=== PATIENT | male | born 1960 | race Caucasian/White ===

== ENCOUNTER 2018-01-06 10:55 | Observation (INO) | payer MEDICAID ==
[2018-01-06] MEDS ORDERED: Loperamide 2 MG Cap PO ONE (11:42)
[2018-01-06] MEDS ORDERED: Ondansetron 4 MG/2 ML SDV IVPUSH PRN (11:43)
[2018-01-06] MEDS ORDERED: Loperamide 2 MG Cap ONE (11:48)
[2018-01-06] MEDS ORDERED: Ondansetron 4 MG/2 ML SDV ONE (11:49)
[2018-01-06] MEDS: Sodium Chloride 0.9% 1,000 ML IV SCH ×2 (12:00→12:56)
[2018-01-06] MEDS ORDERED: Pantoprazole 40 MG Vial IVPUSH SCH (13:00)
[2018-01-06 16:55] VITALS: BP 150/77
--- NOTE | 2018-01-08 11:28 | PCM.DCSUM1 ---
Discharge Summary - Hospital Course Brief History: Patient was placed in observation for dehydration secondary to viral gastroenteritis, vomitng and diarrhea. - Discharge Data Discharge Date: 01/06/18 Discharge Disposition: Home, Self-Care 01 Condition: Good - Discharge Diagnosis/Problem(s) (1) Viral gastroenteritis SNOMED Code(s): 622426422 ICD Code: A08.4 - VIRAL INTESTINAL INFECTION, UNSPECIFIED Status: Suspected Priority: High (2) Nausea & vomiting SNOMED Code(s): 67350036 ICD Code: R11.2 - NAUSEA WITH VOMITING, UNSPECIFIED Status: Acute Priority: High Qualifiers: Vomiting Intractability: intractable (3) Dehydration SNOMED Code(s): 96173276 ICD Code: E86.0 - DEHYDRATION Status: Acute Priority: High (4) Diarrhea SNOMED Code(s): 39057138 ICD Code: R19.7 - DIARRHEA, UNSPECIFIED Status: Acute Priority: High - Patient Instructions Diet: Heart Healthy Diet Activity: As Tolerated Driving: Do Not Drive - Discharge Plan Home Medications: Home Meds Lansoprazole 30 mg PO DAILY 11/07/14 [History] Lisinopril 10 mg PO DAILY 11/07/14 [History] Naproxen Sodium [Aleve] 2 tab PO DAILY 11/07/14 [History] [place]-3/DHA/Epa/Fish Oil [Fish Oil EC 1,000 MG Softgel] 1 cap PO DAILY 11/07/14 [History] RX: Levothyroxine 175 mcg PO DAILY 11/07/14 [History] Patient Handouts: Dehydration, Adult, [id number] - Discharge Summary/Plan Comment DC Time >30 min.: Yes Discharge Summary/Plan Comment: Patient discharged after improvement with hydration. Discussed supportive care and management and f/u in clinic as needed and as routine. Continue hydration and discussed appetite. Patient to return to clinic or ER if symptoms return and worsen. - Patient Data Vitals - Most Recent: Last Vital Signs Temp 36.6 C 01/06/18 16:00 Pulse 85 01/06/18 16:00 Resp 18 01/06/18 16:00 BP 150/77 H 01/06/18 16:00 Pulse Ox 98 01/06/18 16:00 Weight - Most Recent: 189.148 kg Med Orders - Current: Current Medications Discontinued Medications Sodium Chloride (Normal Saline) 1,000 mls @ 999 mls/hr IV ASDIRECTED [facility] Stop: 01/07/18 12:46 Last Admin: 01/06/18 12:56 Dose: 999 mls/hr Loperamide HCl (Imodium) 4 mg PO ONETIME ONE Stop: 01/06/18 11:43 Last Admin: 01/06/18 12:00 Dose: 4 mg Loperamide HCl (Imodium) Confirm Administered Dose 4 mg .ROUTE .STK-MED ONE Stop: 01/06/18 11:49 Last Admin: 01/06/18 12:00 Dose: Not Given Ondansetron HCl (Zofran) 4 mg IVPUSH Q4H PRN PRN Reason: Nausea Last Admin: 01/06/18 11:59 Dose: 4 mg Ondansetron HCl (Zofran) Confirm Administered Dose 4 mg .ROUTE .STK-MED ONE Stop: 01/06/18 11:50 Last Admin: 01/06/18 12:00 Dose: Not Given Pantoprazole Sodium (Protonix Iv) 40 mg IVPUSH Q24H [facility] Last Admin: 01/06/18 13:04 Dose: 40 mg
== END 2018-01-06 18:40 | disposition home or self-care (01) ==
LOC: UNDOADMOB 10:55 → LB.MS 10:55
PROVIDERS: ADMIT Family Medicine; ATTEND Family Medicine
DX: A08.4 Viral intestinal infection, unspecified (principal); E86.0 Dehydration; Z79.899 Other long term (current) drug therapy; Z88.8 Allergy status to other drugs, medicaments and biological substances; Z88.5 Allergy status to narcotic agent
CPT/HCPCS: 36415; 80053; 81001; 82009; 85025; 96361; 96374; 96375; A9270-GY; C9113; G0378; J2405; J7030